=== PATIENT | female | born 1995 | race Caucasian/White ===

== ENCOUNTER 2019-07-22 10:17 | Emergency (ER) | payer BC ==
[~2019-07-22] VITALS: Ht 157.5 cm; Wt 97.1 kg
[2019-07-22 10:40] LABS: Urine Bacteria NONE SEEN /hpf (None Seen); Urine Blood 2+ /uL (Negative); Urine Specific Gravity 1.018 (1.001-1.035); Urine WBC <1 /hpf (0 - 5)
[2019-07-22 10:47] LABS: Basophils # (auto) 0 uL; Basophils % (auto) 0.4 % (0.0-2.0); Eosinophils # (auto) 0.1 uL; Eosinophils % (auto) 0.6 % (0.0-7.0); Hematocrit 44.2 % (36.0-46.0); Hemoglobin 14.9 g/dL (12.2-16.2); Lymphocytes # (auto) 2.2 uL; Mean Corpuscular Hemoglobin 29.4 pg (28.0-32.0); Mean Corpuscular Hgb Conc. 33.7 g/dL (32.0-36.0); Mean Corpuscular Volume 87.2 fL (80.0-100.0); Monocytes # (auto) 0.6 uL; Monocytes % (auto) 6.2 % (0.0-12.0); Neutrophils # (auto) 6.1 uL; Neutrophils % (auto) 67.8 % (37.0-80.0); Platelet Count (auto) 416 10^3/uL (140-450); Red Blood Cells 5.07 10^6/uL (4.0-5.20); Red Cell Distribution Width 13.2 % (11.8-14.3)
[2019-07-22 11:04] LABS: Albumin 4.4 g/dL (3.4-5.0); BUN/Creatinine Ratio 20.3; Calcium 9.5 mg/dL (8.5-10.1); Potassium 4.2 mmol/L (3.5-5.1)
[2019-07-22 11:06] LABS: Bilirubin, Total 0.3 mg/dL (0.2-1.0); Total Protein 8.5 g/dL (6.4-8.2)
[2019-07-22] MEDS ORDERED: ONDANSETRON ODT 4 MG TAB PO ONE (11:30)
[2019-07-22 12:24] VITALS: BP 129/89
== END 2019-07-22 14:34 | disposition home or self-care (01) ==
LOC: ER 10:17
DX: R10.9 Unspecified abdominal pain (principal)
CPT/HCPCS: 36415; 74176; 80053; 81001; 81025; 85025; 99284; Q0162

== ENCOUNTER 2023-04-09 02:49 | Emergency (ER) | payer BC, MEDICAID ==
[~2023-04-09] VITALS: Ht 157.5 cm; Wt 109.2 kg
[2023-04-09] MEDS ORDERED: EPINEPHrine HCL 0.5 ML NEB ONE (03:06)
[2023-04-09] MEDS ORDERED: diphenhdrAMINE HCL 50 MG/1 ML VL IV ONE (03:15)
[2023-04-09] MEDS ORDERED: FAMOTIDINE (10MG/ML) 2ML VL IV ONE (03:15)
[2023-04-09] MEDS ORDERED: DexAMETHasone SOD PHOS 10MG/1ML VIAL INJ IV ONE (03:15)
[2023-04-09] MEDS ORDERED: EPINEPHrine HCL 0.5 ML NEB NEB ONE ×2 (03:15)
[2023-04-09] MEDS ORDERED: PRED20TA2 PO (07:26)
[2023-04-09] MEDS ORDERED: EPIN0.1I11 IM (07:26)
[2023-04-09 08:09] VITALS: BP 132/90
== END 2023-04-09 08:12 | disposition home or self-care (01) ==
LOC: ER 02:49
DX: R22.0 Localized swelling, mass and lump, head (principal); L50.0 Allergic urticaria; R06.02 Shortness of breath; J45.909 Unspecified asthma, uncomplicated; Z88.6 Allergy status to analgesic agent
CPT/HCPCS: 94640; 96374; 96375; 99284; J1100; J1200; J3490

== ENCOUNTER 2023-06-16 12:12 | Emergency (ER) | payer SELFPAY ==
[~2023-06-16] VITALS: Ht 157.5 cm; Wt 110.0 kg
[~2023-06-16 12:12] MED LIST: EPIN0.1I11 IM; PRED20TA2 PO
[2023-06-16] MEDS ORDERED: DexAMETHasone SOD PHOS 10MG/1ML VIAL INJ IV ONE (12:30)
[2023-06-16] MEDS ORDERED: EPINEPHrine HCL 1 MG/1 ML AMP SC ONE (12:30)
[2023-06-16] MEDS ORDERED: FAMOTIDINE (10MG/ML) 2ML VL IV ONE (12:30)
[2023-06-16 12:32] VITALS: O2SAT 98
[2023-06-16 18:00] VITALS: BP 127/81; PULSE 99; RESP 18; O2SAT 97
[2023-06-16] MEDS ORDERED: EPIN0.1I11 IJ (18:00)
[2023-06-16] MEDS ORDERED: FAMO20TA10 PO (18:00)
[2023-06-16] MEDS ORDERED: DIPH25CA51 PO (18:00)
[2023-06-16] MEDS ORDERED: PRED20TA2 PO (18:00)
== END 2023-06-16 18:08 | disposition home or self-care (01) ==
LOC: ER 12:12
DX: T78.2XXA Anaphylactic shock, unspecified, initial encounter (principal); R10.2 Pelvic and perineal pain; J45.909 Unspecified asthma, uncomplicated; Z79.899 Other long term (current) drug therapy; Y92.89 Other specified places as the place of occurrence of the external cause
CPT/HCPCS: 36415; 84702; 96372; 96374; 96375; 99285; J0171; J1100; J3490